=== PATIENT | male | born 1985 | race Caucasian/White ===

== ENCOUNTER 2021-12-04 09:05 | Day surgery (SDC) | payer OTHER ==
[2021-11-26 10:29] LABS: ALBUMIN/GLOBULIN RATIO 1.1 (1.1-1.5); ALKALINE PHOSPHATASE 95 IU/L (46-116); BLOOD UREA NITROGEN 17 MG/DL (7-18); BUN/CREATININE RATIO 19.3 (5.4-32.0); CALCIUM 9.2 MG/DL (8.5-10.1); CHLORIDE 106 MMOL/L (99-107); CREATININE 0.88 MG/DL (0.60-1.10); PRE OP ALT 78 U/L (30-65); PRE OP ANION GAP 7 (8-16); PRE OP AST 29 U/L (10-37); PRE OP BILIRUB, TOTAL 0.2 MG/DL (0.0-1.0); PRE OP GLUCOSE 101 MG/DL (70-104); PRE OP POTASSIUM 4.5 MMOL/L (3.4-5.1); PRE OP SODIUM 139 MMOL/L (135-145); TOTAL CARBON DIOXIDE 25.9 MMOL/L (24-32); TOTAL PROTEIN 7.7 G/DL (6.4-8.2); eGFR > 90 ML/MIN
[2021-11-26 10:32] LABS: BASOPHILS % (AUTO) 0.6 % (0-1); EOSINOPHILS # (AUTO) 0.2 X10'3 (0-0.9); EOSINOPHILS % (AUTO) 2.8 % (0-6); LYMPHOCYTES # (AUTO) 2.6 X10'3 (1.1-4.8); LYMPHOCYTES % (AUTO) 41.1 % (21-51); MEAN CORPUSCULAR HEMOGLOBIN 32.4 PG (27.0-31.0); MEAN CORPUSCULAR HGB CONC 34.3 g/dL (33.0-36.5); MEAN CORPUSCULAR VOLUME 94.6 FL (78-98); MEAN PLATELET VOLUME 7.6 FL (7.4-10.4); MONOCYTES # (AUTO) 0.4 X10'3 (0-0.9); MONOCYTES % (AUTO) 6.4 % (2-12); NEUTROPHILS # (AUTO) 3.1 X10'3 (1.8-7.7); NEUTROPHILS % (AUTO) 49.1 % (42-75); PRE OP HEMATOCRIT 49.2 % (42.0-52.0); PRE OP HEMOGLOBIN 16.8 g/dL (14.0-17.9); PRE OP PLATELET COUNT 337 X10'3 (140-440); RED CELL DISTRIBUTION WIDTH 13.8 % (11.5-14.5)
[~2021-12-04] VITALS: Ht 180.3 cm; Wt 134.5 kg
[2021-12-04] VITALS (9 sets, daily range): BP systolic 100–141; BP diastolic 66–87
[~2021-12-04 09:05] MED LIST: NO HOME MEDS; ceFAZolin inj. 3,000 MG in normal saline 100ml IV soln 100 ML IV ONE; famotidine 20mg tablet PO ONE; ringers solution, lacted 1,000 ML IV SCH
[2021-12-04] MEDS ORDERED: ringers solution, lacted 1,000 ML IV SCH (09:50)
[2021-12-04] MEDS ORDERED: ondansetron/PF 4mg/2ml inj IV PRN (09:50)
[2021-12-04] MEDS ORDERED: morphine 2 MG/ML inj. syringe IV PRN (09:50)
[2021-12-04] MEDS ORDERED: meperidine/PF 25mg/ml syringe IV PRN ×3 (09:50)
[2021-12-04] MEDS ORDERED: proCHLORperazine 10 MG/2 ml inj IV PRN (09:50)
[2021-12-04] MEDS ORDERED: morphine 4 MG/ML inj SYRINge IV PRN (09:50)
[2021-12-04] MEDS ORDERED: BUPIVAcaine/PF 2.5 mg/ml (0.25%) 30ml vial ONE ×2 (10:52→11:36)
[2021-12-04] MEDS ORDERED: LIDOcaine 1% 30ml preserv. free vial ONE (10:52)
[2021-12-04] MEDS ORDERED: neostigmine methylsulfate 1 MG/ML 10ml vial ONE (11:00)
[2021-12-04] MEDS ORDERED: sevoflurane 250ml liquid IH ONE (11:00)
[2021-12-04] MEDS ORDERED: ondansetron/PF 4mg/2ml inj ONE (11:00)
[2021-12-04] MEDS ORDERED: glycopyrrolate 0.2mg/ml inj ONE (11:00)
[2021-12-04] MEDS ORDERED: midazolam 1 mg/ML 2ml injection ONE (11:03)
[2021-12-04] MEDS ORDERED: fentaNYL /PF 50mcg/ml 5ml ampule ONE (11:04)
[2021-12-04] MEDS ORDERED: propofol inj 20 ML IV ONE (11:05)
[2021-12-04] MEDS ORDERED: rocuronium 10mg/ml inj IV ONE (11:05)
[2021-12-04] MEDS ORDERED: LIDOcaine 1%/PF 5ML 10 MG/ML VIAL ONE (11:05)
[2021-12-04] MEDS ORDERED: dexamethasone sod phosphate 4mg/ml inj. ONE (11:33)
[2021-12-04] MEDS ORDERED: BUPIVACAINE liposomal/PF 13.3 MG/ML vial IM ONE (11:37)
[2021-12-04] MEDS ORDERED: ketorolac trometh. 30mg/ml inj. ONE (12:37)
[2021-12-04] MEDS ORDERED: oxyCODONE/APAP 5-325mg tablet PO PRN (13:00)
--- NOTE | 2021-12-04 14:14 | NUR ---
ALL DISCHARGE CRITERIA HAS BEEN MET. VSS, PAIN AT A TOLERABLE LEVEL, NO VOIDING NEEDED PRIOR TO GOING HOME PER DR. ART, ABLE TO SAFELY AMBULATE AND TRANSFER SELF. IV TAKEN OUT WITHOUT ANY COMPLICATIONS. ALL DISCHARGE INSTRUCTIONS COVERED WITH PATIENT AND ALL QUESTIONS ANSWERED. PATIENT TAKEN OUT VIA WHEELCHAIR TO PERSONAL VEHICLE WHERE FAMILY DROVE PATIENT HOME. Addendum: 12/04/21 at 1428 by Jaycob Oh RN Amended: Links added.
== END 2021-12-04 14:14 | disposition home or self-care (01) ==
LOC: PAS 09:05
PROVIDERS: ATTEND Surgery
DX: K43.9 Ventral hernia without obstruction or gangrene (principal); K42.9 Umbilical hernia without obstruction or gangrene; J45.909 Unspecified asthma, uncomplicated; F17.210 Nicotine dependence, cigarettes, uncomplicated; E66.01 Morbid (severe) obesity due to excess calories; Z68.41 Body mass index [BMI] 40.0-44.9, adult; Z79.899 Other long term (current) drug therapy; Z98.890 Other specified postprocedural states
CPT/HCPCS: 36415; 49652; 64488; 71046; 80053; 82948; 85025; 93005; C1781; C9290; J0690; J1100; J1885; J2175; J2250; J2405; J2704; J2710; J3010; J3490; J7030; J7120; Z7506; Z7508; Z7512; A4215; A4618